=== PATIENT | male | born 1995 ===

== ENCOUNTER 2018-06-30 03:36 | Emergency (ER) | payer SELFPAY ==
[2018-06-30] MEDS ORDERED: Ondansetron ODT TAB* 4 MG SL ONE (03:50)
--- NOTE | 2018-06-30 03:57 | ED ---
Substance Abuse/Use - HPI Summary HPI Summary: This patient is a 22 year old M BIBA to [facility] with a chief complaint of alcohol intoxication since 03:00 today. Patient reports mild nausea and vomiting [employer]. He does not drink very often and he is unsure of how much he drank tonight. - History Of Current Complaint Chief Complaint: EDSubstanceAbuse Stated Complaint: ETOH Time Seen by Provider: 06/30/18 03:41 Hx Obtained From: Patient Ingestion History: Type/Name Of Drug - Alcohol, Amount Ingested - Unknown - Allergies/Home Medications Allergies/Adverse Reactions: Allergies Allergy/AdvReac Type Severity Reaction Status Date / Time No Known Allergies Allergy Verified 06/30/18 03:55 Home Medications: Home Medications NK [No Home Medications Reported] 06/30/18 [History Confirmed 06/30/18] PMH/Surg Hx/FS Hx/Imm Hx Endocrine/Hematology History: Denies: Hx Diabetes Respiratory History: Denies: Hx Asthma Sensory History: Denies: Hx Deafness EENT History: Denies: Hx Deafness Infectious Disease History: No Infectious Disease History: Denies: Traveled Outside the [place] in Last 30 Days - Family History Known Family History: Negative: Seizure Disorder - Social History Occupation: Student Lives: With Family Alcohol Use: Occasionally Substance Use Type: Reports: None Smoking Status (MU): Never Smoked Tobacco Review of Systems Negative: Fever Positive: Slurred Speech All Other Systems Reviewed And Are Negative: Yes Physical Exam - Summary Physical Exam Summary: VITAL SIGNS: Reviewed. GENERAL: Patient is a well-developed and nourished MALE who is lying comfortable in the stretcher. Patient is not in any acute respiratory distress. HEAD AND FACE: No signs of trauma. No ecchymosis, hematomas or skull depressions. No sinus tenderness. EYES: PERRLA, EOMI x 2, No injected conjunctiva, no nystagmus. EARS: Hearing grossly intact. Ear canals and tympanic membranes are within normal limits. MOUTH: Oropharynx within normal limits. NECK: Supple, trachea is midline, no adenopathy, no JVD, no carotid bruit, no c- spine tenderness, neck with full ROM. CHEST: Symmetric, no tenderness at palpation LUNGS: Clear to auscultation bilaterally. No wheezing or crackles. CVS: Regular rate and rhythm, S1 and S2 present, no murmurs or gallops appreciated. ABDOMEN: Soft, non-tender. No signs of distention. No rebound no guarding, and no masses palpated. Bowel sounds are normal. EXTREMITIES: FROM in all major joints, no edema, no cyanosis or clubbing. NEURO: Alert and oriented x 3. No acute neurological deficits. Speech is normal and follows commands. SKIN: Dry and warm Triage Information Reviewed: Yes Vital Signs On Initial Exam: Initial Vitals Temp Pulse Resp BP Pulse Ox 97.7 F 68 16 129/93 100 06/30/18 03:42 06/30/18 03:42 06/30/18 03:42 06/30/18 03:42 06/30/18 03:42 Vital Signs Reviewed: Yes Diagnostics - Vital Signs Vital Signs Temp Pulse Resp BP Pulse Ox 06/30/18 03:42 97.7 F 68 16 129/93 100 - Laboratory Lab Statement: Any lab studies that have been ordered have been reviewed, and results considered in the medical decision making process. Re-Evaluation - Re-Evaluation 1 Re-Evaluation Time: 05:30 Change: Improved - Able to ambulate without assistance. Course/Dx - Course Course Of Treatment: This patient is a 22 year old M BIBA to [facility] with a chief complaint of alcohol intoxication since 03:00 today. Patient reports mild nausea and vomiting [employer]. He does not drink very often and he is unsure of how much he drank tonight. Patient was reevaluated and able to ambulate without help. He will be discharged home. - Diagnoses Provider Diagnoses: Alcohol intoxication Discharge - Sign-Out/Discharge Documenting (check all that apply): Patient Departure - Discharge Plan Condition: Stable Disposition: HOME Patient Education Materials: Alcohol Intoxication (ED) Referrals: Care [facility] [Outside] - 2 Days Additional Instructions: RETURN TO THE EMERGENCY DEPARTMENT FOR CHANGING OR WORSENING SYMPTOMS. FOLLOW UP WITH PCP IN 1-2 DAYS. - Attestation Statements Document Initiated by Scribe: Yes Documenting Scribe: Jose Maria Cueto Provider For Whom Scribe is Documenting (Include Credential): Katya Godfrey MD Scribe Attestation: Jose Maria Quigley, scribed for Katya Godfrey MD on 06/30/18 at 0602.
[2018-06-30 06:16] VITALS: BP 119/76
== END 2018-06-30 06:15 | disposition home or self-care (01) ==
LOC: ED 03:36
DX: F10.129 Alcohol abuse with intoxication, unspecified (principal)
CPT/HCPCS: 99282; A9270-GY